=== PATIENT | female | born 1995 | race Caucasian/White ===

== ENCOUNTER 2017-01-04 13:41 | Emergency (ER) | payer MEDICAID, OTHER ==
[2017-01-04] MEDS ORDERED: METOCLOPRAMIDE HCL 10 MG TABLET PO ONE (14:04)
[2017-01-04] MEDS ORDERED: DIPHENHYDRAMINE HCL 25 MG CAPSULE PO ONE (14:04)
[2017-01-04 14:05] VITALS: BP 130/83
--- NOTE | 2017-01-04 14:08 | ER Document Report ---
ED Medical Screen (RME) - General Chief Complaint: Weakness Stated Complaint: DIZZINESS Mode of Arrival: Medic Information source: Patient Notes: 21 y/o F presents to ED via EMS c/o dizziness, nausea, and weakness. Reports is approximately 5 weeks . SA 2. States had syncopal episode approximately 2 weeks ago. Denies pelvic pain or vaginal bleeding, fever, chest pain, shortness of breath. I have greeted and performed a rapid initial assessment of this patient. A comprehensive ED assessment and evaluation of the patient, analysis of test results and completion of the medical decision making process will be conducted by additional ED providers. TRAVEL OUTSIDE OF THE [place] IN LAST 30 DAYS: No - Related Data Allergies/Adverse Reactions: Tuberculin,Ppd,Multi-Puncture [From Tuberculin PPD Cecilia Test] Allergy (Verified 01/04/17 14:04) venom-wasp [Wasp Venom] Allergy (Verified 01/04/17 14:04) Past Medical History - Social History Chew tobacco use (# tins/day): No Frequency of alcohol use: None Drug Abuse: None Pulmonary Medical History: Denies: Hx Asthma, Hx Bronchitis, Hx Pneumonia Neurological Medical History: Denies: Hx Migraine Endocrine Medical History: Denies: Hx Diabetes Mellitus Type 1, Hx Diabetes Mellitus Type 2 Renal/ Medical History: Denies: Hx Ectopic , Hx Ovarian Cysts, Hx Peritoneal Dialysis Past Surgical History: Reports: Hx Adenoidectomy, Hx Tonsillectomy - and adenoids - Immunizations Immunizations up to date: Yes Hx Diphtheria, Pertussis, Tetanus Vaccination: Yes Physical Exam - General General appearance: Alert In distress: None - Respiratory Respiratory status: No respiratory distress - Neurological Neuro grossly intact: Yes Cognition: Normal Orientation: AAOx4 [place] Coma Scale Eye Opening: Spontaneous [place] Coma Scale Verbal: Oriented [place] Coma Scale Motor: Obeys Commands [place] Coma Scale Total: 15 Speech: Normal Motor strength normal: LUE, RUE, LLE, RLE
[2017-01-04 15:06] LABS: ABSOLUTE EOSINOPHILS # (AUTO) 0.1 10^3/uL (0.0-0.6); ABSOLUTE LYMPHOCYTES (AUTO) 2.3 10^3/uL (0.5-4.7); ABSOLUTE MONOCYTES (AUTO) 0.8 10^3/uL (0.1-1.4); ABSOLUTE NEUT (AUTO) 5.7 10^3/uL (1.7-8.2); BASOPHILS % (AUTO) 0.5 % (0-2); EOSINOPHILS % (AUTO) 0.7 % (0-6); HEMATOCRIT 42.4 % (36.0-47.0); HEMOGLOBIN 14.3 g/dL (12.0-15.5); HGB HCT DIFFERENCE 0.5; LYMPHOCYTES % (AUTO) 25.5 % (13-45); MEAN CORPUSCULAR HEMOGLOBIN 30.5 pg (27.0-33.4); MEAN CORPUSCULAR HGB CONC 33.9 g/dL (32.0-36.0); MEAN CORPUSCULAR VOLUME 90 fl (80-97); MONOCYTES % (AUTO) 8.8 % (3-13); RED CELL DISTRIBUTION WIDTH 13.4 % (11.5-14.0); SEGMENTED NEUTROPHILS % (AUTO) 64.5 % (42-78); WHITE BLOOD COUNT 8.9 10^3/uL (4.0-10.5)
[2017-01-04 15:23] LABS: ALANINE AMINOTRANSFERASE 46 U/L (9-52); ALBUMIN 4.5 g/dL (3.5-5.0); ALKALINE PHOSPHATASE 62 U/L (38-126); ANION GAP 14 (5-19); ASPARTATE AMINO TRANSFERASE 27 U/L (14-36); BILIRUBIN,TOTAL 0.6 mg/dL (0.2-1.3); BLOOD UREA NITROGEN 7 mg/dL (7-20); CALCIUM 10.1 mg/dL (8.4-10.2); CARBON DIOXIDE 22 mmol/L (22-30); CHLORIDE 101 mmol/L (98-107); CREATININE RESULT 0.59 mg/dL (0.52-1.25); GLUCOSE 99 mg/dL (75-110); POTASSIUM 3.9 mmol/L (3.6-5.0); SODIUM 136.6 mmol/L (137-145); TOTAL PROTEIN 6.9 g/dL (6.3-8.2)
== END 2017-01-04 21:34 | disposition left against medical advice (07) ==
LOC: ER 13:41
DX: Z53.9 Procedure and treatment not carried out, unspecified reason (principal); R53.1 Weakness; R42 Dizziness and giddiness; R11.0 Nausea; Z3A.01 Less than 8 weeks gestation of pregnancy
CPT/HCPCS: 36415; 80053; 84702; 85025; 99281